=== PATIENT | male | born 1940 | race Caucasian/White ===

== ENCOUNTER 2016-08-11 00:11 | Day surgery (SDC) | payer MEDICARE, OTHER ==
[~2016-08-11] VITALS: Ht 185.4 cm; Wt 101.0 kg
[2016-08-11] VITALS (16 sets, daily range): BP systolic 109–154; BP diastolic 54–98; PULSE 48–72; RESP 12–21; O2SAT 94–99
[~2016-08-11 00:11] MED LIST: ASPI-973 PO; ATOR80TA77 PO; FERR325C PO; FURO40TA4 PO; GABA600T2 PO; LISI2.5T PO; MAGN400T4 PO; PANT40TA2 PO
--- NOTE | 2016-08-11 06:00 | NUR ---
ADMISSION NOTE MALE PT ADMITTED FOR PACEMAKER INSERTION. DISCUSSED PLAN OF CARE WITH PT AND FAMILY. SEE ADMIT AND FLOW SHEET
[2016-08-11] MEDS: 0.9% Sodium Chloride 1,000 ML IV SCH ×4 (06:05→20:18)
[2016-08-11] MEDS ORDERED: Vancomycin Inj 1,000 MG in IV Premix 1 EACH IV ONE ×2 (06:05→19:15)
[2016-08-11 06:28] LABS: BASOPHILS % (AUTO) 0.6 % (0-3); EOSINOPHILS % (AUTO) 5.4 % (0-5); Mean Corpuscular Hemoglobin 30.8 pg (27.0-35.0); Mean Corpuscular Volume 93.9 fL (81-100); NEUTROPHILS % (AUTO) 59.1 % (40-74); Platelet Count 167 bil/L (150-400)
[2016-08-11 06:43] LABS: INR 0.96 ratio
[2016-08-11] MEDS ORDERED: MULT-1104 PO (06:59)
[2016-08-11] MEDS ORDERED: 0.9% Sodium Chloride 250 ML ONE (08:01)
[2016-08-11] MEDS ORDERED: Vancomycin 1,000 mg Inj ONE (08:01)
[2016-08-11] MEDS ORDERED: Heparin 5,000 Units/500 mL NS Premix IV ONE (08:01)
[2016-08-11] MEDS ORDERED: Bupivacaine-MPF 0.5% 30 mL Inj ONE (08:01)
[2016-08-11] MEDS ORDERED: Water for Injection 50 ML IV ONE (08:01)
[2016-08-11] MEDS ORDERED: fentaNYL-PF 50 mCg/mL 2 mL Inj ONE (08:10)
[2016-08-11] MEDS ORDERED: Ondansetron 2 mg/mL 2 mL Inj IVPUSH PRN (09:15)
--- NOTE | 2016-08-11 09:30 | NUR ---
POST PROCEDURE NOTE RETURNED FROM RECREATION LEADER. SEE FLOW SHEET
--- NOTE | 2016-08-11 10:27 | DRSVH ---
PROCEDURE: X-RAY CHEST ONE VIEW, PORTABLE ([id number]) INDICATIONS: For new leads placed TECHNIQUE: One view of the chest was acquired. COMPARISON: None. FINDINGS: Surgical changes and devices: Postoperative changes are present related to a prior median sternotomy. A cardiac pacer/defibrillator apparatus is evident overlying the left chest. Lungs and pleura: No pleural effusions or pneumothorax. Lungs are clear. Mediastinum: Mediastinal contours appear normal. Heart size is normal. Bones and chest wall: No suspicious bony lesions. Overlying soft tissues appear unremarkable. IMPRESSION: Negative chest. No acute cardiopulmonary process is evident. No pneumothorax. Dictated by: Bryce Louise M.D. on 08/11/2016 at 9:19 Approved by: Bryce Louise M.D. on 08/11/2016 at 9:25
--- NOTE | 2016-08-11 14:00 | NUR ---
TRANSFER NOTE TO [facility]. REPORT GIVEN
--- NOTE | 2016-08-11 14:18 | NUR ---
Arrival to [facility] Oriented patient to room. Denies chest pain nor any pain in that matter. Dressing to incision to left upper C/D/I. Continue frequent rounding.
[2016-08-11] MEDS ORDERED: CeFAZolin Inj 1 GM in IV Premix 1 EACH IV SCH (16:30)
[2016-08-11] MEDS: Pantoprazole 40 mg ER24 Tablet PO SCH (17:22)
--- NOTE | 2016-08-11 18:59 | OP ---
[address] [address] OPERATIVE REPORT PATIENT: MYRON MCCLURE : 1940 MR#: [id number] ADMIT: 08/11/2016 JOB ID: [id number] DATE OF SURGERY: 08/11/2016 PREOPERATIVE DIAGNOSIS(ES): Sick sinus syndrome. POSTOPERATIVE DIAGNOSIS(ES): Sick sinus syndrome. PROCEDURES PERFORMED: 1. Dual-chamber pacemaker implantation. 2. Fluoroscopy. SURGEON: Shyam Pablo MD, electrophysiology. PUBLICATIONS MANAGER: Colin Lara. IMPLANTED DEVICES: 1. [employer] pulse generator, model LP7361, serial #[id number]. 2. RA lead, [employer], LPA 1200M, 52 cm, serial #[id number]. 3. RV lead [employer], LPA 1200M, 58 cm, serial #[id number]. ANESTHESIA: Bolus dosing of Versed and fentanyl were utilized for an appropriate level of sedation. INDICATION: The patient is a pleasant 76-year-old man with ischemic heart disease, bypass grafting, and sick sinus syndrome. After discussion of the risks and benefits of pacemaker implantation, he opted to proceed. PROCEDURAL DESCRIPTION: Following informed signed consent, the patient was taken to the EP laboratory in a fasting nonsedated state, where he was prepped and draped in the usual sterile fashion. The left infraclavicular region was infiltrated with 40 cc of a 50/50 mixture of bupivacaine and lidocaine. Once adequate anesthesia had been achieved, a 3 cm transverse incision was performed 2 cm below the left clavicle. Dissection was carried down to the pectoralis fascia and a pocket was then fashioned using a combination of electrocautery and blunt dissection. Once adequate anesthesia had been achieved, access to the left axillary vein was gotten with a micropuncture needle twice to deploy two 0.035, 3 mm J guidewires. Over the first of these, an 8-Ethiopian tear-away sheath was advanced. Once the guidewire was removed an active fixation lead was advanced to the RV outflow tract and ultimately RV apex. The lead was affixed in position using its associated active fixation screw and was connected to the external analyzer and observed to sense R waves, impedance, and capture threshold. Lead was checked to 10 V and there was no evidence of diaphragmatic stimulation. Attention was now paid to the right atrial lead. Over the other previously deployed J guidewire, another 8-Ethiopian tear-away sheath was advanced. Once the guidewire was removed, an active fixation lead was inserted into right atrial appendage. It was affixed in position using associated active fixation screw. This was connected to the external analyzer and demonstrated appropriately sensed P waves, impedance and capture threshold. Lead was checked to 10 V and there was no evidence of diaphragmatic stimulation. Once the position and redundancy of both leads had been confirmed in multiple fluoroscopic views, the leads were anchored to the prepectoralis fascia using their associated anchoring sleeves and two Ethibond sutures. The pocket was then copiously irrigated with antibiotic solution. The leads were connected to a generator. The generator was placed into the pocket and was affixed to the floor of the pocket using 1-0 Ti-Cron suture. The incision was closed with running layers of absorbable suture. The wound was dressed with skin adhesive and a small dressing. At the end of procedure, needle, sponge, and instrument counts were correct. COMPLICATIONS: None. ESTIMATED BLOOD LOSS: 5 cc. DEVICE MEASURED DATA: 1. Right atrial lead 1.7 to 3 mV, 430 ohms, 1 V at 0.4 msec. 2. RV lead 10.4 mV, 480 ohms, 0.25 V at 0.4 msec. FINAL PROGRAM PARAMETERS: DDDR 60-130 beats per minute with VIP on. IMPRESSION: Successful dual-chamber pacemaker implantation. PLAN: 1. Stat portable chest x-ray. 2. PA and lateral chest x-ray in the morning. 3. Device interrogation. 4. IV Ancef. 5. Keflex x7 days. 6. Wound check in one week. ATTENDING STATEMENT: Shyam Pablo MD, electrophysiology attending, was present for and supervised/performed all aspects of this procedure.
[2016-08-12 01:03] VITALS: BP 147/82; PULSE 60; RESP 18; O2SAT 96
[2016-08-12 04:44] VITALS: PULSE 60
--- NOTE | 2016-08-12 04:58 | NUR ---
post pacer/bleeding dressing to left upper chest CDI; no hematoma noted, has tolerable tenderness to the incision site. Pt is still wearing the sling; compliant with post pacer restrictions. Pt needs assistance getting OOB due to left arm restriction, but able to ambulate safely to the . noted drops of yonas blood when pt went to void. Pt c/o burning sensation when voiding the first time, but no complaints of burning the second time he went and had minimal bleeding from his penis. will closely monitor.
[2016-08-12] MEDS: 0.9% Sodium Chloride 1,000 ML IV SCH (05:14)
[2016-08-12 05:19] VITALS: BP 162/95; PULSE 63; RESP 18; O2SAT 94
[2016-08-12] MEDS: Pantoprazole 40 mg ER24 Tablet PO SCH (08:49)
--- NOTE | 2016-08-12 09:02 | DRSVH ---
PROCEDURE: X-RAY CHEST, TWO VIEWS ([id number]) INDICATIONS: For new lead placement TECHNIQUE: 2 views of the chest were acquired. COMPARISON: [facility], CR, XR CHEST 1VW (PORTABLE), 08/11/2016, 9:47. FINDINGS: Surgical changes and devices: Post median sternotomy and stable positioning of dual chamber left card iac pacer. Lungs and pleura: No pleural effusions or pneumothorax. Lungs are clear and interstitium is mildly prominent which is unchanged. Mediastinum: Mediastinal contours are normal. Heart size is normal. Bones and chest wall: No suspicious bony abnormalities. Soft tissues appear unremarkable. IMPRESSION: Stable chest post pacer placement. Dictated by: Dennis Milan RRA Interpreted: Darcy Caro MD on 08/12/2016 at 9:01 Transcribed by: KAMAR on 08/12/2016 at 9:02 Approved by: Darcy Caro M.D. on 08/12/2016 at 22:16
--- NOTE | 2016-08-12 09:41 | PCM.DIMED ---
Discharge Instructions Date of Service Aug 12, 2016 Dates of Hospitalization Discharge Diagnosis Discharge Diagnosis Symptomatic Bradycardia Sinus Bradycardia in the 30's Junctional Rhythm Hypertension Diet Heart Healthy Activity Other (Do not extend left elbow high above shoulder for one month. Do not lift , push or pull more than 10 lbs with the left arm for one month.) Call your provider Fever or Chills, Bleeding, Excessive diarrhea Patient Instructions Follow-up in: 1 week Mid-level Provider (F9): Duong Brown PA-C Follow-up with Mid-level in: 6 weeks Duong Brown PA-C Aug 12, 2016 09:41
[2016-08-12] MEDS ORDERED: DOXY100C2 PO (10:05)
[2016-08-12 10:09] VITALS: BP 129/69; PULSE 60; RESP 18; O2SAT 99
--- NOTE | 2016-08-12 11:47 | NUR ---
Discharge: Patient discharged to home @ approx 1145. IV d/c'd intact, telemetry removed, compliance monitor notified. Personal belongings sent home with patient. Reviewed home medication list, antibiotic prescription, d/c instruction including pacemaker care and restrictions,and follow up appointments. Verbalized understanding. Escorted to main entrance via wheelchair accompanied by TELEPHONE TECHNICIAN.
--- NOTE | 2016-08-12 22:58 | DIS ---
[address] [address] DISCHARGE SUMMARY PATIENT: MYRON MCCLURE : 1940 MR#: [id number] ADMIT: 08/11/2016 JOB ID: [id number] DIS: 08/12/2016 REASON FOR ADMISSION: Pacemaker implant. CHIEF COMPLAINT: Weakness, fatigue and near syncope. BRIEF HISTORY: The patient is a pleasant 76-year-old man known to have coronary artery disease and prior bypass grafting, but preserved LV function. He has been symptomatic with bradycardia and has had documented sinus rates in the 30s associated with lightheadedness and near syncope. He also has periods of junctional rhythm when the sinus rate is so slow. He is not on beta blockade. On one occasion, he did lose consciousness. He was advised of the benefits of a cardiac pacemaker and wished to move forward with that. COURSE IN HOSPITAL: The patient was admitted to the [facility] and taken to the record label internship, where he received the dual-chamber cardiac pacemaker without incident. He was taken back to the [facility] for recovery from sedation and then transferred up to the third floor [facility] for overnight telemetry and care. He did well and in the morning he was ambulatory without difficulty. The incision is closed and dry, and there is no hematoma. Device evaluation shows good capture thresholds and ventricular sensing. The atrial electrogram has reduced down to about 0.8 mV and the device sensitivity was set to 0.3 to ensure sensing. The chest x-ray showed good lead positions and no pneumothorax. He felt well for discharge home. During the night he had gone to the bathroom to empty his bladder and had difficulty urinating and there was some blood observed. He has not experienced this before. The 2nd time a few hours later there was also a small amount of blood observed. DISPOSITION: The patient was discharged home in good condition with a follow-up appointment at the [facility] Cardiology office in one week. He was also advised to see his primary care physician regarding the urinary hesitancy and hematuria. He does have an appointment with his doctor next week, he says. He was asked to follow a heart healthy diet and take medications as prescribed. DISCHARGE MEDICATIONS: 1. Doxycycline 100 mg daily. 2. Aspirin 81 mg b.i.d. 3. Atorvastatin 80 mg daily. 4. Ferrous sulfate 325 mg daily. 5. Furosemide 40 mg p.r.n. 6. Gabapentin 1200 mg at bedtime. 7. Lisinopril 2.5 mg daily. 8. Magnesium oxide 400 mg daily. 9. Multivitamin one daily. 10. Pantoprazole 40 mg b.i.d. FINAL DIAGNOSES: 1. Symptomatic sinus bradycardia and junctional rhythm. 2. Near-syncope and syncope.
== END 2016-08-12 11:48 | disposition home or self-care (01) ==
LOC: SOUO 00:11 → MPC 13:29 → SOUO 23:59
PROVIDERS: ATTEND Internal Medicine Cardiovascular Disease
DX: I49.5 Sick sinus syndrome (principal); R55 Syncope and collapse; I25.10 Atherosclerotic heart disease of native coronary artery without angina pectoris; I12.9 Hypertensive chronic kidney disease with stage 1 through stage 4 chronic kidney disease, or unspecified chronic kidney disease; N18.9 Chronic kidney disease, unspecified; I25.2 Old myocardial infarction; Z79.82 Long term (current) use of aspirin; Z95.1 Presence of aortocoronary bypass graft
CPT/HCPCS: 33208; 36415; 71010; 71020; 80048; 85025; 85610; 93005; 99152; 99153; C1769; C1785; C1892; C1898; J0131; J1644; J2250; J3010; J3370; J7030; J7050